=== PATIENT | male | born 1965 | race Caucasian/White ===

== ENCOUNTER 2021-01-02 16:54 | Emergency (ER) | payer OTHER ==
[~2021-01-02 16:54] MED LIST: AMLODIPINE-BEN1 EACH PO; ASPIRIN CHEWABL81 MG PO; ATORVASTATIN CA20 MG PO; BASAGLAR K100 UNIT/1 SC; DICLOFENAC SODI75 MG PO; HYDROCODON-ACE1 EAC4 PO; METFORMIN HCL500 MG PO
== END 2021-01-02 19:45 | disposition other institution (70) ==
LOC: FER 16:54
DX: S68.621A Partial traumatic transphalangeal amputation of left index finger, initial encounter (principal); W26.0XXA Contact with knife, initial encounter
CPT/HCPCS: 73140